=== PATIENT | male | born 1990 | race Native Hawaiian/Other Pacific Islander ===

== ENCOUNTER 2016-09-13 01:27 | Emergency (ER) | payer OTHER ==
[2016-09-13 01:56] VITALS: BP 111/64; PULSE 65; RESP 16; TEMP 98.6; O2SAT 99
[2016-09-13] MEDS ORDERED: Sodium Chloride 0.9% 1,000 ML IV STA (02:02)
--- NOTE | 2016-09-13 02:04 | ED PDOC ---
HPI: Abdomen Time Seen by Provider: 09/13/16 01:30 Chief Complaint (Nursing): Abdominal Pain Chief Complaint (Provider): abd pain, diarrhea History Per: Patient History/Exam Limitations: no limitations Onset/Duration Of Symptoms: Hrs Outside of [place] travel?: No Current Symptoms Are (Timing): Better Additional Complaint(s): 26yo male with no PMHx presents to the ED with c/o abdominal pain and diarrhea since 1999 last night. Patient states he ate at restaurant he usually goes to and did not eat anything out of the ordinary or strange. Patient took pepto- bismol and ibuprofen which provided relief of symptoms. On arrival to ED patient feels much better. Denies vomiting, fever, chest pain, SOB. Past Medical History Reviewed: Historical Data, Nursing Documentation, Vital Signs Vital Signs: Last Vital Signs Temp 98.6 F 09/13/16 01:51 Pulse 65 09/13/16 01:51 Resp 16 09/13/16 01:51 BP 111/64 09/13/16 01:51 Pulse Ox 99 09/13/16 04:23 - Medical History PMH: No Chronic Diseases - Surgical History Other surgeries: dental - Family History Family History: States: No Known Family Hx - Social History Current smoker - smoking cessation education provided: No Alcohol: None Drugs: Denies - Allergies Allergies/Adverse Reactions: Allergies Allergy/AdvReac Type Severity Reaction Status Date / Time No Known Allergies Allergy Verified 09/13/16 01:56 Review of Systems ROS Statement: Except As Marked, All Systems Reviewed And Found Negative Constitutional: Negative for: Fever Cardiovascular: Negative for: Chest Pain Respiratory: Negative for: Shortness of Breath Gastrointestinal: Positive for: Abdominal Pain, Diarrhea. Negative for: Vomiting Physical Exam - Reviewed Nursing Documentation Reviewed: Yes Vital Signs Reviewed: Yes - Physical Exam Appears: Positive for: Well, No Acute Distress Head Exam: Positive for: ATRAUMATIC, NORMAL INSPECTION, NORMOCEPHALIC Skin: Positive for: Normal Color, Warm, Dry Neck: Positive for: Normal, Painless ROM, Supple Cardiovascular/Chest: Positive for: Regular Rate, Rhythm. Negative for: Murmur , Tachycardia Respiratory: Positive for: Normal Breath Sounds. Negative for: Wheezing, Respiratory Distress Gastrointestinal/Abdominal: Positive for: Normal Exam, Soft. Negative for: Tenderness Back: Positive for: Normal Inspection. Negative for: L CVA Tenderness, R CVA Tenderness Extremity: Positive for: Normal ROM. Negative for: Deformity, Swelling Neurologic/Psych: Positive for: Alert, Oriented - Laboratory Results Result Diagrams: 09/13/16 02:41 09/13/16 02:41 - ECG O2 Sat by Pulse Oximetry: 99 Pulse Ox Interpretation: Normal (RA) Medical Decision Making Medical Decision Makin: Impression: abdominal pain, diarrhea Plan: CMP, CBC, lipase IVF, Zofran 4mg IV reassess 0419: Labs reviewed, WNL. Patient feels better. Counseled regarding good hand washing, need to drink plenty of liquids, and advancing his diet slowly. Instructed patient to follow up with PCP in 1-2 days and return to the ED with any worsening or concerning symptoms. Scribe Attestation: Documented by Sheri Nieves acting as a scribe for Jessica Schwarz MD. Provider Scribe Attestation: All medical record entries made by the Scribe were at my direction and personally dictated by me. I have reviewed the chart and agree that the record accurately reflects my personal performance of the history, physical exam, medical decision making, and the department course for this patient. I have also personally directed, reviewed, and agree with the discharge instructions and disposition. Disposition - Clinical Impression Clinical Impression: Diarrhea - Patient ED Disposition Is Patient to be Admitted: No Counseled Patient/Family Regarding: Studies Performed, Diagnosis, Need For Followup - Disposition Referrals: [facility] [Outside] [facility] [Outside] Disposition: Routine/Home Disposition Time: 03:19 Condition: IMPROVED Additional Instructions: follow up with your primary doctor in 1-2 days return to the ED with any worsening or concerning symptoms. Instructions: Acute Diarrhea (ED)
[2016-09-13 02:49] LABS: ALBUMIN 4.3 g/dL (3.5-5.0)
[2016-09-13 02:52] LABS: ALB/GLOB RATIO 1.3 (1.0-2.1); AST/SGOT 26 U/L (17-59); GFR AFRICAN-AMERICAN > 60; GFR NON-AFRICAN AMERICAN > 60
[2016-09-13 02:53] LABS: ALT/SGPT 23 U/L (21-72); BLOOD UREA NITROGEN 20 mg/dl (9-20); CALCIUM 9.5 mg/dL (8.4-10.2); LIPASE 54 U/L (23-300)
[2016-09-13 02:58] LABS: BASO % 0.1 % (0.0-2.0); EOS # 0.1 K/uL (0.0-0.7); EOS % 0.8 % (0.0-4.0); HEMOGLOBIN 14.9 g/dL (12.0-18.0); LYMPH % 9.1 % (20.0-40.0); MEAN CELL VOLUME 90.6 fl (80.0-94.0); MEAN CORPUSCULAR HEMOGLOBIN 30.3 pg (27.0-31.0); MEAN CORPUSCULAR HGB CONC 33.5 g/dL (33.0-37.0); MEAN PLATELET VOLUME 8.6 fl (7.2-11.7); MONO # 0.8 K/uL (0.0-0.8); NRBC % 0.1 % (0.0-0.0); PLATELET COUNT 214 K/uL (130-400); RED CELL DISTRIBUTION WIDTH 13.1 % (11.5-14.5); WHITE BLOOD COUNT 10.9 K/uL (4.8-10.8)
[2016-09-13 04:57] LABS: ANISOCYTOSIS SLIGHT; BANDS 1 % (0-2); EOSINOPHIL 2 % (0-7); HYPOCHROMIC SLIGHT; LYMPHOCYTE 11 % (20-50); MONOCYTE 3 % (0-10); NEUTROPHIL 83 % (42-75); PLATELET ESTIMATE NORMAL (NORMAL); TEARDROP CELLS SLIGHT; TOTAL CELLS COUNTED 100
[2016-09-13 04:59] LABS: LARGE PLATELETS PRESENT
== END 2016-09-13 04:22 | disposition home or self-care (01) ==
LOC: H.ER 01:27
DX: R19.7 Diarrhea, unspecified (principal); R10.9 Unspecified abdominal pain